=== PATIENT | female | born 1980 | race Caucasian/White ===

== ENCOUNTER 2018-07-28 06:37 | Emergency (ER) | payer OTHER ==
[2018-07-28 06:54] VITALS: TEMP 98.3
--- NOTE | 2018-07-28 07:09 | RAD ---
PROCEDURE: Chest,2 Views CLINICAL HISTORY: cough, fever INDICATION: Same as above COMPARISON: None TECHNIQUE: PA and and lateral chest radiographs were obtained. FINDINGS: The lung navarrete are well inflated. There are no discrete airspace infiltrates, pneumothoraces or pleural effusions. The pulmonary vascularity is normal The cardiomediastinal silhouette is unremarkable for patient's age and sex. IMPRESSION: There is no acute pleural-parenchymal process seen in the imaged lung navarrete. Place of interpretation: Teleradiology. Electronically signed by: Jonn Sinclair MD 07/28/2018 7:08 AM CDT Workstation: [id number]
--- NOTE | 2018-07-28 07:11 | ED.PDOC ---
History of Present Illness - General Chief Complaint: Fever Stated Complaint: fever, congestion Time Seen by Provider: 07/28/18 07:11 Source: patient Exam Limitations: no limitations - History of Present Illness Initial Comments: Keyana Patel 37 y/o female stated that she had non productive cough and nasal congestion for the last one week took augmentin for 5 days feel not any better .Has also fever /chills since yesterday .No nausea,/vomiting.works at [employer].No chronic medical problem. Timing/Duration: 1 week, constant Severity: moderate Improving Factors: nothing, eating Associated Symptoms: cough Allergies/Adverse Reactions: Allergies NO KNOWN ALLERGY Allergy (Unverified 03/28/14 16:27) Home Medications: Ambulatory Orders Azithromycin [Zithromax Z-Ivctorino] 500 mg PO DAILY 3 Days #6 tab 07/28/18 Cefuroxime Axetil [Ceftin] 500 mg PO Q12H 7 Days #14 tablet 07/28/18 Review of Systems - Review of Systems Constitutional: States: no symptoms reported EENTM: States: see HPI Respiratory: States: see HPI Cardiology: States: no symptoms reported Gastrointestinal/Abdominal: States: no symptoms reported Genitourinary: States: no symptoms reported Musculoskeletal: States: no symptoms reported Skin: States: no symptoms reported Neurological: States: no symptoms reported Endocrine: States: no symptoms reported Hematologic/Lymphatic: States: no symptoms reported Past Medical History (General) - Patient Medical History Hx Asthma: No Hx Hypertension: No Hx Diabetes: No Surgical History: other - breast augmentation - Social History Hx Alcohol Use: Yes - occ. Hx Physical Abuse: No Hx Emotional Abuse: No - Activities of Daily Living Patient Lives Alone: No - Female History Patient is a Female of Child Bearing Age (10 -59 yrs old): Yes Hx Last Menstrual Period: 06/09/18 Patient : No Family Medical History - Family History Father Family History: Unknown Hx Family Congestive Heart Failure: Yes - dad Hx Family Diabetes: Yes - dad Physical Exam - Physical Exam General Appearance: Alert, Comfortable, No apparent distress Eye Exam: bilateral normal Ears, Nose, Throat: hearing grossly normal, normal ENT inspection, normal pharynx, nasal congestion Neck: non-tender, full range of motion, supple Respiratory: chest non-tender, lungs clear, normal breath sounds, no respiratory distress, other - speaks in full sentences Cardiovascular/Chest: normal peripheral pulses, regular rate, rhythm, no murmur Peripheral Pulses: radial,right: 2+, radial,left: 2+ Gastrointestinal/Abdominal: normal bowel sounds, non tender, soft, no organomegaly Back Exam: normal inspection, no CVA tenderness, no vertebral tenderness Neurologic: no motor/sensory deficits, alert, oriented x 3 Progress - Progress Progress: 07/28/18 07:26 Vital Signs - 24 hr 07/28/18 06:45 Temperature 98.3 F Pulse Rate [ 99 H left] Respiratory 20 Rate Blood Pressure 128/68 [left] O2 Sat by Pulse 93 L Oximetry - Results/Orders Results/Orders: Laboratory Results WBC 13.4 K/mm3 (4.8-10.8) H 07/28/18 07:29 RBC 4.22 M/mm3 (4.20-5.40) 07/28/18 07:29 Hgb 13.1 gm/dL (12.0-16.0) 07/28/18 07:29 Hct 39.4 % (36.0-47.0) 07/28/18 07:29 MCV 93.5 fl (81.0-99.0) 07/28/18 07: MCH 31.0 pg (27.0-31.0) 07/28/18 07: MCHC 33.2 g/dL (33.0-37.0) 07/28/18 07:29 RDW 12.8 % (11.5-14.5) 07/28/18 07:29 Plt Count 238 K/mm3 (130-400) 07/28/18 07:29 MPV 9.3 fl (7.40-10.4) 07/28/18 07:29 Absolute Neuts (auto) 10.10 K/uL (1.8-6.8) H 07/28/18 07:29 Absolute Lymphs (auto) 1.90 K/uL (1.0-3.4) 07/28/18 07:29 Absolute Monos (auto) 1.30 K/uL (0.2-0.8) H 07/28/18 07:29 Absolute Eos (auto) 0.10 K/uL (0.0-0.4) 07/28/18 07:29 Absolute Basos (auto) 0.00 K/uL (0.0-0.1) 07/28/18 07:29 Neutrophils % 75.6 % (42.0-78.0) 07/28/18 07:29 Lymphocytes % 13.9 % (20.0-50.0) L 07/28/18 07:29 Monocytes % 9.6 % (2.0-9.0) H 07/28/18 07:29 Eosinophils % 0.6 % (1.0-5.0) L 07/28/18 07:29 Basophils % 0.3 % (0.0-2.0) 07/28/18 07:29 Lactic Acid 1.0 mmol/L (0.5-2.2) 07/28/18 07:29 - EKG/XRAY/CT XRAY: chest - no acute abnormalities noted Departure - Departure Clinical Impression: Sinusitis, acute Qualifiers: Sinusitis location: unspecified location Recurrence: non-recurrent Qualified Code(s): J01.90 - Acute sinusitis, unspecified Time of Disposition: 07:48 Disposition: Discharge to Home or Self Care Condition: Fair Departure Forms: ED Discharge - Pt. Copy, Patient Portal Self Enrollment Instructions: Sinusitis, Adult (DC), Sinusitis in Adults Referrals: Catherine Pedersen NP [Primary Care Provider] - 1-2 Weeks Prescriptions: Azithromycin [Zithromax Z-Victorino] 500 mg PO DAILY 3 Days #6 tab Cefuroxime Axetil [Ceftin] 500 mg PO Q12H 7 Days #14 tablet Home Medications: Ambulatory Orders Azithromycin [Zithromax Z-Victorino] 500 mg PO DAILY 3 Days #6 tab 07/28/18 Cefuroxime Axetil [Ceftin] 500 mg PO Q12H 7 Days #14 tablet 07/28/18 Additional Instructions: May use Saline nose spray as needed for nasal congestion and Afrin nose spray 2 each nostril am/pm 3 days on 3 days off until better;Mucinex -Dm onea tablet am/ pm for cough.follow up with primary Md 31 Jul 2018;Return to ER as Needed ; drink extra fluids;Discontinue augmentin
[2018-07-28 08:08] VITALS: BP 119/75; O2SAT 100
== END 2018-07-28 08:00 | disposition home or self-care (01) ==
LOC: ER 06:37
DX: J01.90 Acute sinusitis, unspecified (principal)

== ENCOUNTER → 2018-10-26 | Outpatient (CLI) | payer OTHER ==
--- NOTE | 2018-10-26 08:46 | RAD ---
4 view left shoulder Indication: SHOULDER PAIN Comparison: None. Impression: A.C. and glenohumeral joint alignment normal without acute fracture or dislocation. No advanced a.c. or glenohumeral joint osteoarthritis. Slight lateral downsloping of the acromion. Minimal cystic change suspected of the humeral neck and the region of the intertubercular groove. Electronically signed by: David Scanlon MD 10/26/2018 8:45 AM [facility]
== END ==
LOC: RAD 07:45
PROVIDERS: ATTEND Orthopaedic Surgery
DX: M25.512 Pain in left shoulder (principal)

== ENCOUNTER → 2018-11-14 | Outpatient (CLI) | payer OTHER ==
--- NOTE | 2018-11-14 09:01 | MRI ---
EXAM DESCRIPTION: MRI left shoulder CLINICAL HISTORY: Rotator cuff syndrome. Shoulder pain COMPARISON: None. TECHNIQUE: Multiplanar, multisequence MR images of the left shoulder FINDINGS: Supraspinatus tendinosis. Low-grade articular surface and bursal surface fraying anteriorly. Subacromial subdeltoid bursal edema with minimal fluid. Muscle volume normal with minimal fatty streaking. Infraspinatus tendinosis with increased signal from the myotendinous junction to the insertion anteriorly. Normal muscle volume with minimal fatty streaking. Teres minor tendon and muscle are normal. Subscapularis tendon intact. Normal muscle volume with minimal fatty streaking Long head biceps tendon normal in the bicipital groove and intra-articular. Couple of tiny resorptive cysts in the bicipital groove. Labral anchor intact. No labral detachment. No high-grade glenohumeral chondrosis or chronic osteochondral lesion Acromioclavicular osteoarthritis with irregularity and edema in the distal clavicle. No AC separation IMPRESSION: Acromioclavicular osteoarthritis and small-volume subacromial subdeltoid fluid/bursitis Supraspinatus tendinosis with low-grade surface fraying Electronically signed by: Lewis Richmond MD 11/14/2018 8:59 AM [facility]
== END ==
LOC: MRI 06:53
PROVIDERS: ATTEND Orthopaedic Surgery
DX: M75.102 Unspecified rotator cuff tear or rupture of left shoulder, not specified as traumatic (principal); M19.012 Primary osteoarthritis, left shoulder; M75.92 Shoulder lesion, unspecified, left shoulder

== ENCOUNTER → 2020-06-09 | Outpatient (CLI) | payer OTHER ==
--- NOTE | 2020-06-10 11:47 | US ---
EXAM DESCRIPTION: OB ,Late (15-40wks): Ultrasound. CLINICAL HISTORY: 39 years Female Gestational size and dates correlation. Second trimester. survey. unknown. By clinical information , EGA today is 16 weeks, 5 days, with CALEB of 19 November 2020. COMPARISON: Previous OB ultrasound not available. TECHNIQUE: Trans-pelvic scanning through the urine-filled bladder; oates-scale, color Doppler, and M-mode sonography. FINDINGS: Single, intrauterine gestation, breech position. Amniotic fluid volume and GALLO: Subjectively normal. Maternal cervix internal os closed.. Placenta anterior with no evidence of previa or abruptio. Venous lakes in the placenta. heart rate by M-mode sonography 147 beats/min. limb activity observed. structural survey: Limited due to age. Sagittal cervical and thoracic spine. Ultrasound parameter measurements for estimating gestational age: BPD 3.6 cm 16/6 (weeks/days). Head circumference 13.0 cm 16/5. Abdominal circumference 11.2 cm 17/0. Femur length 2.2 cm 16/3. Ultrasound parameter ratios and cephalic index within the normal range. Mean estimated gestational age 16 weeks 5 days, corresponding to CALEB of 19 November 2020. Estimated weight based on these measurements is 167+/- 25 g. 6 ounces 44th percentile based upon weight. Bilateral adnexa not well seen; ovaries not seen IMPRESSION: 1. Single, living, intrauterine gestation in breech presentation. Amniotic fluid volume subjectively normal, and maternal cervix internal os closed. Placenta anterior with no evidence of previa. Venous romero in the central placenta. Structural survey limited due to size.. 2. Estimated gestational age by today's ultrasound examination is 16 weeks 5 days with CALEB 19 November 2020. This is identical to the estimated gestation age by medical history. 3. Estimated weight is 167 g. 6 ounces. 44th Percentile based upon weight. Electronically signed by: Pramod Quintero MD 06/10/2020 11:45 AM CDT
== END ==
LOC: US 10:58
PROVIDERS: ATTEND Emergency Medicine
DX: Z33.1 Pregnant state, incidental (principal)

== ENCOUNTER → 2020-06-17 | Outpatient (CLI) | payer OTHER | LOC: LAB.O 13:32 | PROVIDERS: ATTEND Emergency Medicine | DX: R22.40 Localized swelling, mass and lump, unspecified lower limb (principal) ==

== ENCOUNTER → 2020-06-18 | Outpatient (CLI) | payer OTHER ==
--- NOTE | 2020-06-18 16:37 | US ---
EXAM DESCRIPTION: Venous,Lower Extremity RT: ULTRASOUND. CLINICAL HISTORY: RLE SWELLING COMPARISON: None Available. TECHNIQUE: Richards-scale and doppler sonographic evaluation of the deep venous system of the right lower extremity. FINDINGS: Doppler evaluation shows normal color flow and normal phasicity and augmentation of the right common femoral vein, femoral vein, popliteal vein, greater saphenous vein, junction with the CFV. Also normal color flow and normal phasicity and augmentation of the peroneal, and posterior tibial vein. The right lower extremity deep veins were completely compressible; normal occlusion with transducer pressure. Richards-scale survey showed no echogenic thrombus within these veins. IMPRESSION: 1. Duplex ultrasound evaluation of the right lower extremity deep venous system showing no evidence of thrombosis. Electronically signed by: Pramod Quintero MD 06/18/2020 4:36 PM CDT
== END ==
LOC: US 14:41
PROVIDERS: ATTEND Emergency Medicine
DX: R22.40 Localized swelling, mass and lump, unspecified lower limb (principal)